=== PATIENT | male | born 1970 | race Caucasian/White ===

== ENCOUNTER 2018-07-16 12:49 | Emergency (ER) | payer BC ==
[2018-07-16 13:13] LABS: PLATELET COUNT 326 10^3/uL (150-400)
--- NOTE | 2018-07-16 13:37 | EDPHY ---
H & P Stated Complaint: Near syncope Time Seen by Provider: 07/16/18 13:23 HPI/ROS: CHIEF COMPLAINT: Palpitations HISTORY OF PRESENT ILLNESS: Patient is a 48-year-old man who arrives by EMS after having palpitations and lightheadedness. He states that he was at work when he felt like his heart was racing. He stood up and went downstairs where his coworkers told him that he looked pale. EMS was called. They told the patient that his heart rate was up and down between 40 and 90 however the only rhythm strips they brought with them show it to be in the 80s and regular. He denies chest pain or shortness of breath. He has never had symptoms like this before. No new foods. No caffeine or stimulant abuse. Severity: Moderate Modifying factors: None REVIEW OF SYSTEMS: Constitutional: denies: chills, fever, recent illness, recent injury EENTM: denies: blurred vision, double vision, nose congestion Respiratory: denies: cough, shortness of breath Cardiac: See HPI Gastrointestinal/Abdominal: denies: abdominal pain, diarrhea, nausea, vomiting, blood streaked stools Genitourinary: denies: dysuria, frequency, hematuria, pain Musculoskeletal: denies: joint pain, muscle pain Skin: denies: lesions, rash, jaundice, bruising Neurological: denies: headache, numbness, paresthesia, tingling, dizziness, weakness Hematologic/Lymphatic: denies: blood clots, easy bleeding, easy bruising Immunologic/allergic: denies: HIV/AIDS, transplant 10 systems reviewed and negative except as noted EXAM: GENERAL: Well-appearing, well-nourished and in no acute distress. HEAD: Atraumatic, normocephalic. EYES: Pupils equal round and reactive to light, extraocular movements intact, sclera anicteric, conjunctiva are normal. ENT: TMs normal, nares patent, oropharynx clear without exudates. Moist mucous membranes. NECK: Normal range of motion, supple without lymphadenopathy or JVD. LUNGS: Breath sounds clear to auscultation bilaterally and equal. No wheezes rales or rhonchi. HEART: Regular rate and rhythm without murmurs, rubs or gallops. ABDOMEN: Soft, nontender, normoactive bowel sounds. No guarding, no rebound. No masses appreciated. BACK: No CVA tenderness, no spinal tenderness, step-offs or deformities EXTREMITIES: Normal range of motion, no pitting or edema. No clubbing or cyanosis. NEUROLOGICAL: Cranial nerves II through XII grossly intact. Normal speech, normal gait. 5/5 strength, normal movement in all extremities, normal sensation , normal reflexes PSYCH: Normal mood, normal affect. SKIN: Warm, dry, normal turgor, no visible rashes or lesions. Source: Patient Exam Limitations: No limitations - Personal History Current Tetanus/Diphtheria Vaccine: Yes Current Tetanus Diphtheria and Acellular Pertussis (TDAP): Yes - Medical/Surgical History Hx Asthma: No Hx Chronic Respiratory Disease: No Hx Diabetes: No Hx Cardiac Disease: No Hx Renal Disease: No Hx Cirrhosis: No Hx Alcoholism: No Hx HIV/AIDS: No Hx Splenectomy or Spleen Trauma: No Other PMH: ORIF arm, tonsillectomy - Family History Significant Family History: No pertinent family hx - Social History Smoking Status: Former smoker Alcohol Use: Sober Drug Use: None Constitutional: Initial Vital Signs Temperature (C) 36.8 C 07/16/18 12:49 Heart Rate 72 07/16/18 12:49 Respiratory Rate 16 07/16/18 12:49 Blood Pressure 125/73 H 07/16/18 12:49 O2 Sat (%) 94 07/16/18 12:49 O2 Delivery Mode Room Air Allergies/Adverse Reactions: No Known Allergies Allergy (Unverified 07/16/18 13:05) Home Medications: Medication Instructions Recorded Lisinopril 07/16/18 Metoprolol Tartrate 07/16/18 Medical Decision Making - Diagnostics EKG Interpretation: An EKG obtained and was read and documented in trace view. Please see trace view for full reading and report. Sinus rhythm, no acute ischemic changes A repeat EKG obtained and was read and documented in trace view. Please see trace view for full reading and report. Sinus rhythm, no ischemic changes, unchanged from previous ED Course/Re-evaluation: 2:20 p.m. the patient continues to feel well. No more palpitations. No arrhythmia seen on the monitor. Lab work is reassuring. He has not had any chest pain or shortness of breath. At this time he is eager to go home. We engaged in shared decision making. I recommended follow up with his primary for Holter monitor wearing. He is tolerating p. O. Here and is able to ambulate without difficulty. Suspect that he had a arrhythmia. 2:30 p.m. the patient ambulates without difficulty. No palpitations. No shortness of breath. No chest pain. No dizziness. He is eager to go home. Differential Diagnosis: Partial list of the Differential diagnosis considered include but were not limited to; palpitations, arrhythmia, anxiety and although unlikely based on the history and physical exam, I also considered electrolyte abnormality, acute coronary disease, PE, infection, dissection. I discussed these differential diagnoses and the plan with the patient as well as the usual and expected course. The patient understands that the diagnosis is provisional and that in medicine we are not always correct and that further workup is often warranted. Usual and customary warnings were given. All of the patient's questions were answered. The patient was instructed to return to the emergency department should the symptoms at all worsen or return, otherwise to followup with the physician as we discussed. - Data Points Laboratory Results: Laboratory Results 07/16/18 13:08 07/16/18 13:08 07/16/18 07/16/18 07/16/18 13:08 13:08 13:03 WBC 8.63 10^3/uL 10^3/uL (3.80-9.50) RBC 5.05 10^6/uL 10^6/uL (4.40-6.38) Hgb 15.4 g/dL g/dL (13.7-17.5) Hct 43.3 % % (40.0-51.0) MCV 85.7 fL fL (81.5-99.8) MCH 30.5 pg pg (27.9-34.1) MCHC 35.6 g/dL g/dL (32.4-36.7) RDW 12.6 % % (11.5-15.2) Plt Count 326 10^3/uL 10^3/uL (150-400) MPV 9.1 fL fL (8.7-11.7) Neut % (Auto) 48.8 % % (39.3-74.2) Lymph % (Auto) 44.1 % % (15.0-45.0) Mayes % (Auto) 5.7 % % (4.5-13.0) Eos % (Auto) 0.5 % L % (0.6-7.6) Baso % (Auto) 0.6 % % (0.3-1.7) Nucleat RBC Rel Count 0.0 % % (0.0-0.2) Absolute Neuts (auto) 4.21 10^3/uL 10^3/uL (1.70-6.50) Absolute Lymphs (auto) 3.81 10^3/uL H 10^3/uL (1.00-3.00) Absolute Monos (auto) 0.49 10^3/uL 10^3/uL (0.30-0.80) Absolute Eos (auto) 0.04 10^3/uL 10^3/uL (0.03-0.40) Absolute Basos (auto) 0.05 10^3/uL 10^3/uL (0.02-0.10) Absolute Nucleated RBC 0.00 10^3/uL 10^3/uL (0-0.01) Immature Gran % 0.3 % % (0.0-1.1) Immature Gran # 0.03 10^3/uL 10^3/uL (0.00-0.10) Sodium 139 mEq/L mEq/L (135-145) Potassium 3.7 mEq/L mEq/L (3.5-5.2) Chloride 105 mEq/L mEq/L (97-110) Carbon Dioxide 22 mEq/l mEq/l (22-31) Anion Gap 12 mEq/L mEq/L (6-14) BUN 20 mg/dL mg/dL (7-23) Creatinine 1.1 mg/dL mg/dL (0.7-1.3) Estimated GFR > 60 Glucose 128 mg/dL H mg/dL (70-100) Calcium 10.2 mg/dL mg/dL (8.5-10.4) POC Troponin I 0.00 ng/mL ng/mL (0.00-0.08) Point of Care Test Results: Chemistry 07/16/18 13:03 POC Troponin I 0.00 ng/mL ng/mL (0.00-0.08) Departure - Departure Disposition: Home, Routine, Self-Care Clinical Impression: Palpitations Condition: Fair Instructions: Heart Palpitations (ED) Additional Instructions: Follow-up with her doctor for Holter monitoring as we discussed. Return to the emergency department if he developed chest pain or shortness of breath or worsening palpitations. Referrals: Ximena Carrizales MD [Primary Care Provider] - 2-3 days, call for appt.
--- NOTE | 2018-07-16 14:34 | CPEKG ---
Test Reason : OPEN Blood Pressure : / mmHG Vent. Rate : 066 BPM Atrial Rate : 066 BPM P-R Int : 145 ms QRS Dur : 129 ms QT Int : 429 ms P-R-T Axes : 055 076 046 degrees QTc Int : 450 ms Sinus rhythm Nonspecific intraventricular conduction delay ST elev, probable normal early repol pattern Confirmed by Terrell Gary ([id number]) on 07/16/2018 2:34:08 PM Referred By: Terrell Gary Confirmed By:Terrell Gary
[2018-07-16 14:39] VITALS: BP 147/85
== END 2018-07-16 14:38 | disposition home or self-care (01) ==
LOC: EDUNIT#
DX: R00.2 Palpitations (principal); Z87.891 Personal history of nicotine dependence
CPT/HCPCS: 84484-ER